=== PATIENT | male | born 1990 | race Caucasian/White ===

== ENCOUNTER 2017-11-08 12:01 | Emergency (ER) | payer OTHER ==
[~2017-11-08] VITALS: Ht 188 cm; Wt 108.9 kg
[~2017-11-08 12:01] MED LIST: CEPH500 PO; CLIN300; CRUTCH USE; CYCL10 PO; FOLI400; HYDACE5 PO; HYDACE5325 PO; IBUP600 PO; IMIP50; MIRT15; MONT4; NAPR500 PO; OXYACE5T PO; PARO20; RANI150; RXCLIN PO; RXHYDACE PO; TRAZ100; Vibramycin100 MG PO; Zithromax250 MG PO; Zofran4 MG PO
[2017-11-08] MEDS ORDERED: CELE200 PO (12:15)
[2017-11-08] MEDS ORDERED: DIAZ5 PO (12:15)
[2017-11-08] MEDS ORDERED: BUSP15 PO (12:15)
[2017-11-08] MEDS ORDERED: DULO60 (12:16)
[2017-11-08 12:56] LABS: BASOPHILS ABSOLUTE AUTO 0.03 K/mm3 (0.00-0.23); BASOPHILS PERCENT AUTO 0 % (0-2); EOSINOPHILS ABSOLUTE AUTO 0.08 K/mm3 (0.00-0.68); EOSINOPHILS PERCENT AUTO 1 % (0-6); Hematocrit 45.1 % (37.0-53.0); IMMATURE GRAN ABSOLUTE AUTO 0.04 K/mm3 (0.00-0.10); IMMATURE GRAN PERCENT AUTO 0 % (0-1); LYMPHOCYTES ABSOLUTE AUTO 2.29 K/mm3 (0.84-5.20); LYMPHOCYTES PERCENT AUTO 25 % (21-46); MONOCYTES ABSOLUTE AUTO 0.63 K/mm3 (0.16-1.47); MONOCYTES PERCENT AUTO 7 % (4-13); Mean Corpuscular HGB 30.3 pg (26.0-34.0); Mean Corpuscular HGB Conc 35.5 g/dL (31.5-36.5); Mean Corpuscular Volume 85 fL (80-100); Mean Platelet Volume 9.4 fL (9.1-12.4); NEUTROPHILS ABSOLUTE AUTO 6.18 K/mm3 (1.96-9.15); NEUTROPHILS PERCENT AUTO 67 % (41-73); Platelet Count 270 K/mm3 (150-400); RDW Coefficient Variation 13.1 % (11.7-14.2); RDW Standard Deviation 40.8 fL (35.1-46.3); Red Blood Cell Count 5.28 M/mm3 (4.30-5.90); White Blood Cell Count 9.25 K/mm3 (4.00-11.30)
[2017-11-08 13:18] LABS: Alanine Aminotransfer (ALT/SGP 54 U/L (12-78); Albumin, Blood 4.2 g/dL (3.4-5.0); Albumin/Globulin Ratio 1.3 (0.8-1.8); Alk Phos 100 U/L (50-136); Anion Gap 7 mmol/L (6-16); Aspartate Aminotrans (AST/SGOT 27 U/L (12-37); Bilirubin, Total 0.7 mg/dL (0.1-1.0); Blood Urea Nitrogen 15 mg/dL (8-24); Bun/Creatinine Ratio 17.2 (12.0-20.0); CO2, Blood 27 mmol/L (21-32); Calcium, Blood 8.6 mg/dL (8.5-10.1); Chloride, Blood 104 mmol/L (98-108); Creatinine, Blood 0.87 mg/dL (0.60-1.20); Ethanol (Alcohol), Blood, Med <3 mg/dL; Globulin, Blood 3.3 g/dL (2.2-4.0); Glomerular Filtration Rate >60 (60-); Glucose, Blood 85 mg/dL (70-99); Potassium, Blood 4.1 mmol/L (3.5-5.5); Salicylate <1.7 mg/dL (2.8-20.0); Sodium, Blood 138 mmol/L (136-145); Thyroxine (T4) 9.3 ug/dL (4.5-12.1); Total Protein, Blood 7.5 g/dL (6.4-8.2)
[2017-11-08 13:24] LABS: Acetaminophen, Random <2.0 ug/mL (10.0-30.0)
[2017-11-08 14:26] LABS: Source, Urine Clean Catch
[2017-11-08 14:36] LABS: Appearance, Urine Clear (Clear); Bilirubin, Urine Neg (Neg); Blood, Urine Neg (Neg); Color, Urine Yellow (P-Yellow); Glucose Qualitative, Urine Neg (Neg); Ketones, Urine Neg (Neg); Leukocyte Esterase, Urine Neg (Neg); Nitrite, Urine Neg (Neg); Protein, Urine Neg (Neg); Urobilinogen, Urine NORM (Normal)
[2017-11-08 15:06] LABS: U Amphetamine Screen Not Detected; U Barbituate Screen Not Detected; U Benzodiazapine Screen DETECTED; U Cocaine Screen Not Detected; U Methadone Screen Not Detected; U Methamphetamine Screen Not Detected; U Opiates Screen Not Detected
[2017-11-08 15:07] LABS: U Buprenorphine Screen Not Detected; U Cannabinoids Screen Not Detected; U Oxycodone Screen Not Detected; U Phencyclidine Screen Not Detected; U Propoxyphene Screen Not Detected
[2017-11-08] MEDS ORDERED: HYDHCL25 PO (16:09)
== END 2017-11-08 16:30 | disposition home or self-care (01) ==
LOC: ER 12:01
PROVIDERS: Emergency Medicine
DX: F41.9 Anxiety disorder, unspecified (principal); I10 Essential (primary) hypertension; Z88.0 Allergy status to penicillin; Z88.2 Allergy status to sulfonamides; Z88.1 Allergy status to other antibiotic agents; Z88.8 Allergy status to other drugs, medicaments and biological substances; Z79.899 Other long term (current) drug therapy
CPT/HCPCS: 36415; 80053; 81003; 84436; 84443; 85025; 99283; G0480

== ENCOUNTER 2019-02-09 01:49 | Emergency (ER) | payer OTHER ==
[~2019-02-09] VITALS: Ht 185.4 cm; Wt 120.2 kg
[~2019-02-09 01:49] MED LIST changes: +BUSP15 PO; +CELE200 PO; +DIAZ5 PO; +DULO60; +HYDHCL25 PO
[2019-02-09] MEDS ORDERED: Prednisone20 MG PO (03:22)
== END 2019-02-09 03:45 | disposition home or self-care (01) ==
LOC: ER 01:49
DX: R06.02 Shortness of breath (principal); I10 Essential (primary) hypertension; Z88.0 Allergy status to penicillin; Z88.2 Allergy status to sulfonamides; Z88.1 Allergy status to other antibiotic agents; Z88.8 Allergy status to other drugs, medicaments and biological substances; Z79.899 Other long term (current) drug therapy
CPT/HCPCS: 71046; 93005; 93010; 94640; 99283-25

== ENCOUNTER → 2019-07-28 | Outpatient (CLI) | payer OTHER ==
[~2019-07-28] MED LIST changes: +Prednisone20 MG PO
[2019-07-30 01:06] LABS: CHLAMYDIA TRACHOMATIS, NAA Negative (Negative); NEISSERIA GONORRHOEAE, NAA Negative (Negative)
== END | disposition home or self-care (01) ==
LOC: LAB SHORT 10:50 → LAB 10:50
DX: N34.1 Nonspecific urethritis (principal)
CPT/HCPCS: 87491; 87591